=== PATIENT | male | born 1990 | race Caucasian/White ===

== ENCOUNTER 2016-08-03 21:51 | Emergency (ER) | payer BC | END 2016-08-04 02:08 | disposition home or self-care (01) | LOC: ER 21:51 | DX: S60.051A Contusion of right little finger without damage to nail, initial encounter (principal); F17.200 Nicotine dependence, unspecified, uncomplicated; W23.0XXA Caught, crushed, jammed, or pinched between moving objects, initial encounter | CPT/HCPCS: 73130-RT; 90471; 90714; 99283; A9270-GY ==